=== PATIENT | female | born 1970 | race Caucasian/White ===

== ENCOUNTER → 2017-01-26 | Outpatient (CLI) | payer OTHER ==
[~2017-01-26] MED LIST: ATENOLOL25 MG PO
[2017-01-26 14:40] LABS: HEMOGLOBIN 15.2 gm/dl (12.3-15.3); RED BLOOD COUNT 4.71 M/UL (4.00-5.10); WHITE BLOOD COUNT 10.3 K/UL (4.5-11.0)
[2017-01-26 14:54] LABS: BUN/CREATININE RATIO 11 (0-10)
== END ==
LOC: LAB 13:46
PROVIDERS: Nurse Practitioner Family
DX: R10.31 Right lower quadrant pain (principal)
CPT/HCPCS: 36415; 80053; 82150; 83690; 85025

== ENCOUNTER → 2017-01-27 | Outpatient (CLI) | payer OTHER | LOC: CT 08:02 | DX: R10.31 Right lower quadrant pain (principal); R93.3 Abnormal findings on diagnostic imaging of other parts of digestive tract | CPT/HCPCS: J7050; Q9962 ==

== ENCOUNTER → 2017-02-03 | Outpatient (CLI) | payer OTHER | LOC: NM 12:28 | DX: R10.31 Right lower quadrant pain (principal) | CPT/HCPCS: 78227; A9537; J2805 ==